=== PATIENT | female | born 1930 | race Caucasian/White ===

== ENCOUNTER 2016-08-13 14:50 | Inpatient (IN) | payer OTHER ==
--- NOTE | ~2016-08-13 | DS ---
Discharge Summary [facility] [id number] [place]. [address] NAME: KELLEE KRISHNA : [birth year] STATUS : DIS IN PAT#: [id number] AGE: 86 ADM/REG DATE : 08/13/16 MR#: [id number] REPORT SERV DATE: 08/19/16 DICTATED BY: MYRA HECK DATE: 08/18/16 REPORT STATUS : Draft TRANSCRIBED BY: MODL DATE: 08/18/16 ADMISSION DATE: 08/13/2016 DISCHARGE DATE: 08/18/2016 REASON FOR ADMISSION: Right toe cellulitis. HISTORY OF PRESENT ILLNESS: Please refer Dr. Shayy Poon's history and physical dated 08/14/2016 for complete details regarding the patient's admission. In brief, the patient was started on IV antibiotics for her right toe cellulitis. HOSPITAL COURSE: The patient had an uncomplicated hospital course. Dr. Poon had consulted Dr. Mallory, who recommended continuing IV vancomycin along with Dr. Guero Britton for her right toe wound. Dr. 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 He also recommended a carbon fiber toe off. Dr. Mallory had switched her from vancomycin to oral Zyvox on the day of discharge. She did have an MRI finding that showed some bone marrow edema and soft tissue edema with a possibility of osteomyelitis of the great toe phalanges. However, her physical exam and other subjective data was not consistent with osteomyelitis. The patient has reached maximal hospitalization, will be discharged home in stable condition. DISCHARGE DIAGNOSES: 1. Right great toe cellulitis with unlikely osteomyelitis. 2. Chronic kidney disease stage 3. 3. Alzheimer's dementia. 4. Peripheral arterial disease. PROCEDURES: Include MRI of the right foot. CONSULTATION: With Dr. Mallory and Dr. Britton. DISCHARGE MEDICATIONS: Include acyclovir 400 mg daily, vitamin B12 daily, vitamin D 1000 units daily, mupirocin daily, Zyvox 600 mg twice a day for seven days. FOLLOWUP: The patient will follow up with Dr. Zuhair Britton. NELY/ERICA Myra Heck MD / [id number] CC: Discharge Summary [address] [place]. [address] NAME: KELLEE KRISHNA : [birth year] STATUS : DIS IN PAT#: [id number] AGE: 86 ADM/REG DATE : 08/13/16 MR#: [id number] REPORT SERV DATE: 08/19/16 DICTATED BY: MYRA HECK DATE: 08/18/16 REPORT STATUS : Draft TRANSCRIBED BY: MODL DATE: 08/18/16 MD Morales Wesley M.D. C. Jason Wamack, D.P.M.
--- NOTE | ~2016-08-13 | CN ---
Consultation Report [facility] [address] [place]. [address] NAME: KELLEE KRISHNA : [birth year] STATUS : ADM Lyubov PAT#: [id number] AGE: 86 ADM/REG DATE : 08/13/16 MR#: [id number] REPORT SERV DATE: 08/18/16 DICTATED BY: LIUDMILA MOLINA DATE: 08/17/16 REPORT STATUS : Draft TRANSCRIBED BY: MODL DATE: 08/17/16 CONSULTATION NOTE. DATE OF CONSULTATION: 08/16/2016 REASON FOR CONSULTATION: Possible osteomyelitis right great toe. HISTORY OF PRESENT ILLNESS: The patient is an 86-year-old female, who is seen at bedside with daughters present. The daughters relate a lengthy history of her stubbing and dragging her right great toe. The patient states she is unable to move her toe up or down. She states that there has been on and off wounds to the toe, but they typically heal. This is assumed to be from dragging of the toe according to the daughters. They relate two to three weeks ago, she had another wound/cut that started on the top of the toe and began to show more swelling and redness. She at that point, went to an Urgent Care Center where Rocephin and doxycycline was given. They stated that it worsened and went to the primary care physician, Dr. Dalton and was subsequently admitted. The patient does have a history of "a slipped disc" in her back; however, her back pain has resolved and the daughters relate that has been years ago. They do relate on and off injuries to the great toe again from stubbing it, but deny any previous surgery on the right foot. PAST MEDICAL HISTORY: Includes chronic renal insufficiency, peripheral vascular disease, dementia, footdrop, pyelonephritis, history of shingles, and osteoarthritis. PAST SURGICAL HISTORY: Left elbow surgery and cystoscopy. FAMILY HISTORY: Hypertension and myocardial infarction. SOCIAL HISTORY: Denies alcohol, tobacco, or drug use. ALLERGIES: DILAUDID. MEDICATIONS: List of medications were reviewed in the chart. REVIEW OF SYSTEMS: No other pertinent findings on review of systems were noted other than history of herniated disc and previous injury to the great toe. Currently denies nausea, vomiting, fever, or chills. Denies calf pain. Denies chest pain. PHYSICAL EXAMINATION: GENERAL: The patient is an elderly white female, seen at bedside. She is alert, in no apparent distress, and somewhat confused with questioning. VITAL SIGNS: Vital signs are stable. Afebrile. CARDIOVASCULAR: Palpable pulses 1/4 with atrophic skin is present. Capillary refill time is somewhat delayed. Regular rate. Consultation Report [facility] [address] [place]. [address] NAME: KELLEE KRISHNA : [birth year] STATUS : ADM Lyubov PAT#: [id number] AGE: 86 ADM/REG DATE : 08/13/16 MR#: [id number] REPORT SERV DATE: 08/18/16 DICTATED BY: LIUDMILA MOLINA DATE: 08/17/16 REPORT STATUS : Draft TRANSCRIBED BY: ERICA DATE: 08/17/16 HEENT: Normocephalic and atraumatic. No visible drainage. LUNGS: Unlabored breathing, symmetrical respiratory effort. ABDOMEN: Nondistended. DERMATOLOGICAL: Skin is atrophic. There is a well-healed lacerations/previous ulceration to the dorsal right IPJ. There is a localized erythema. No proximal streaking. There is minimal edema. No fluctuance. No soft tissue crepitus appreciated. No odor. No drainage. MUSCULOSKELETAL: Muscle strength is 3/5 with dorsiflexion of the right foot, 0/5 with dorsiflexion and plantar flexion of the great toe on the right side. Left side is 4/5 dorsiflexion and 4/5 with dorsiflexion of the great toe on the left side. DIAGNOSTIC DATA: MRI shows bone marrow edema within the portion of the proximal phalanx and distal phalanx. ASSESSMENT: Right foot cellulitis possible osteomyelitis of the right great toe, peripheral vascular disease, right footdrop/toe drop with history of chronic injuries to the right great toe. PLAN: At this time arterial Dopplers will be ordered to evaluate her arterial circulation. Clinically there is minimal erythema and the wound appears to be healed, this is not clinically impressive for osteomyelitis of the great toe. I discussed the possibility of possible bone marrow edema is due to the chronic trauma of the right great toe sustains while walking and the daughters do relate her stubbing her toe constantly. We will discuss with the Infectious Disease, Dr. Mallory, and also will re-evaluate once arterial Dopplers come in. Hopeful plan will be antibiotics, continue to watch resolution, but ultimately having a Carbon-Fiber ToeOFF AFO to be used in order to eliminate the constant trauma to the drop of the right great toe. Also the MRI revealed no mention of an extensor or flexor hallucis tendon rupture. This could be coming from her history of her lumbar spine issues. We will re-evaluate tomorrow. LOGAN/ERICA Travis AdamsPYovani / [id number] CC: MD Morales Wesley M.D.
--- NOTE | ~2016-08-13 | HP ---
History And Physical [facility] [address] [place]. [address] NAME: KELLEE KRISHNA : [birth year] STATUS : ADM Lyubov PAT#: [id number] AGE: 86 ADM/REG DATE : 08/13/16 MR#: [id number] REPORT SERV DATE: 08/14/16 DICTATED BY: HONG ANDERSON DATE: 08/13/16 REPORT STATUS : Draft TRANSCRIBED BY: MODUrvashi DATE: 08/13/16 DATE OF ADMISSION: 08/13/2016 CHIEF COMPLAINT: Right toe swelling and redness status post trauma. HISTORY OF PRESENT ILLNESS: This is an 86-year-old female with a past medical history of peripheral vascular disease, stage 3 CKD, experienced a trauma to her right toe after tripping over her carpet approximately two weeks ago. According to the son, the patient injured her right great toe. She was seen at an Urgent Care Facility and was placed on doxycycline and given an injection which is suspected to be Rocephin; however, the right toe wound continued to get worse with increased redness and increased pain and swelling. Therefore, the patient was seen at her primary care's office, Dr. Dalton, for the first time concerning for right toe, and the patient was directly admitted to the hospital for worsening cellulitis. According to the son, who gives the history, due to the patient's dementia, the patient has not had any fever or chills. She is still ambulatory but uses assistive devices at home. Also, the son states that they washed the wound with peroxide approximately two weeks ago, and the patient was compliant with her doxycycline but continued to have worsening redness and swelling. He also states that her last tetanus was approximately in 2012. The patient at this time denies any pain except with movement of the great toe. No chest pain. No shortness of breath. REVIEW OF SYSTEMS: Limited secondary to the patient's dementia, please refer to the HPI. PAST MEDICAL HISTORY: Peripheral vascular disease, no noted stent placed; CKD stage 3; dementia; right ureter stone with obstruction; pyelonephritis; shingles; and arthritis. PAST SURGICAL HISTORY: Cystoscopy with double-J stent to the right ureter, left elbow surgery, and right great toe injury in 12/2015. FAMILY HISTORY: Hypertension and ME. SOCIAL HISTORY: No tobacco, alcohol, or illicit drugs. ALLERGIES: DILAUDID. HOME MEDICATIONS: Vitamin B12, vitamin D, acyclovir prophylaxis, and doxycycline for toe injury. PHYSICAL EXAMINATION: VITAL SIGNS: Temp of 97.7, blood pressure 154/74 with a pulse of 73, respirations of 16, and saturating 98% on room air. GENERAL: The patient is alert and oriented x1, very pleasant, follows commands. HEENT: Pupils equal, round, and reactive to light. Extraocular muscles are intact. Anicteric sclerae. Dry mucous membranes. CARDIOVASCULAR: S1, S2. Regular rate and rhythm. No appreciated rubs or gallops. No JVD. History And Physical [address] [address] NAME: KELLEE KRISHNA : [birth year] STATUS : ADM Lyubov PAT#: [id number] AGE: 86 ADM/REG DATE : 08/13/16 MR#: [id number] REPORT SERV DATE: 08/14/16 DICTATED BY: HONG ANDERSON DATE: 08/13/16 REPORT STATUS : Draft TRANSCRIBED BY: ERICA DATE: 08/13/16 RESPIRATORY: Clear to auscultation bilaterally. No wheezes or crackles. No signs of tachypnea. ABDOMEN: Positive bowel sounds. Soft, nontender. No rebound. No fluid wave. No distention. EXTREMITIES: Weak dorsalis pedis pulses but warm with an old healing laceration of the right great toe which appears to be very deep but no drainage with some healing with beginning to develop some old scar tissue. Positive induration with positive erythema of the great toe. Tenderness to palpation with movement. Positive warmth. NEUROLOGIC: Cranial nerves 2 through 12 grossly intact. Moves all four extremities. No neuro focal deficits. LABORATORY DATA: Currently pending. ASSESSMENT AND PLAN: 1. Acute right great toe cellulitis with wound. 2. Stage 3 chronic kidney disease. 3. Peripheral vascular disease. 4. We will start IV antibiotics. Also, we will check blood cultures. The patient is already on doxycycline, therefore, blood cultures may be sterile. We will check also basic labs and also will provide tetanus vaccine/booster. The patient will be monitored closely. JARROD/ERICA Hong Anderson M.D. / [id number] CC: Yosef Crockett M.D.
--- NOTE | ~2016-08-13 | CN ---
Consultation Report [facility] [address] [place]. [address] NAME: KELLEE KRISHNA : [birth year] STATUS : ADM Lyubov PAT#: [id number] AGE: 86 ADM/REG DATE : 08/13/16 MR#: [id number] REPORT SERV DATE: 08/16/16 DICTATED BY: DALY LOAIZA DATE: 08/16/16 REPORT STATUS : Draft TRANSCRIBED BY: MODUrvashi DATE: 08/16/16 INFECTIOUS DISEASE CONSULTATION DATE OF CONSULTATION: REASON FOR REFERRAL: Evaluation and treatment of foot infection. HISTORY OF PRESENT ILLNESS: The patient is an 86-year-old female. She has a history of chronic renal insufficiency and dementia. She has had past urinary stones, shingles in the past. She has peripheral vascular disease in her lower extremities. She has loss of movement in flexion and extension of her right great toe and when walking barefoot, will frequently catch it on things and bend it down that has happened a couple of times in the last ten months, resulting in deep cuts on the top of the toe. The first time, it healed and did not trouble her for that, but about two and a half weeks ago, she got another cut that then began to turn red and caused swelling in the toe, so she went to an acute care center. They gave her an intramuscular injection of Rocephin and sent her out on doxycycline, but it continued to swell and worsen with that. She was seen by her primary care physician, Dr. Dalton, last week and then admitted. There was nothing to culture from the toe itself, but blood cultures were done, those have remained negative. She was started on vancomycin, and line around the redness which extended onto the distal half of her first metatarsal has decreased down to the toe itself, base, the redness has faded some on the toe, but it continues to be very painful. The wound looks healed and has not opened up or drained any. An MRI was done yesterday and this suggested possible osteomyelitis. She has been afebrile and does not feel sick with any systemic symptoms. It was an inside carpet that she cut it on, so there have been no unusual environmental exposures. PAST MEDICAL HISTORY: Otherwise, unremarkable. MEDICATIONS: As mentioned above. ALLERGIES: NO KNOWN ANTIMICROBIAL ALLERGIES. SOCIAL HISTORY: She lives at home independently prior to this. She is single and has no history of alcohol or substance abuse. No history of smoking. PHYSICAL EXAMINATION: GENERAL: A nontoxic, elderly female, in no acute distress. She is awake, alert, answers questions nearly appropriately, but gets confused about times and locations easily. VITAL SIGNS: Her temperature here has been normal throughout the hospital stay, most recently was 98.4 with a pulse of 68, respirations 15, blood pressure 117/75, weight 58 kg. HEENT: Sclerae clear. No oral lesions. NECK: Supple. LUNGS: Clear. HEART: Regular rate and rhythm. Consultation Report [facility] [id number] [facility] [place]. [address] NAME: KELLEE KRISHNA : [birth year] STATUS : ADM Lybuov PAT#: [id number] AGE: 86 ADM/REG DATE : 08/13/16 MR#: [id number] REPORT SERV DATE: 08/16/16 DICTATED BY: DALY LOAIZA DATE: 08/16/16 REPORT STATUS : Draft TRANSCRIBED BY: ERICA DATE: 08/16/16 ABDOMEN: Soft and nontender. Positive bowel sounds. EXTREMITIES: The right great toe is mildly swollen, it is erythematous from the base to the end, it is very tender. The cut across the top of the toe is well healed. There is no active drainage. No fluctuance. No other acute appearing lesions on her feet. No skin lesions or rashes. LABORATORY DATA: White count 6.5 when she came in, 4.7 on 08/14; hematocrit 39.3; platelets 176; unremarkable differential and the white blood cell count. BUN and creatinine 26 and 1.48. IMPRESSION: Infected great toe due to trauma. I feel this is most likely gram-positive cocci and she has responded to the vancomycin, but incompletely, and with the findings on the MRI, this could be due to deep infection that has involved the bone. RECOMMENDATIONS: 1. Agree with vancomycin for now. Would not add anything to it. 2. Await evaluation by either Podiatry or Ortho Foot and Ankle of both the patient and the MRI. If possible, she will need amputation or debridement, in which case, better cultures can be obtained. 3. Finally, I will follow the patient with you. I appreciate very much your consulting on this patient. CHERYL Daly Loaiza M.D. / [id number] CC: Yosef Crockett M.D.
[~2016-08-13 14:50] MED LIST: 8 HOUR650 MG PO; ALEVE220 MG PO; ARICEPT5 PO; CENTRUM PO; CIPROFLOXACIN PO; COZ50 PO; DURICEF PO; HYDROCODONE PO; LOP50 PO; LORT7 PO; NORCO1 TA2 PO; OMNICEF300 PO; PR25 PO; TYLENOL ARTH650 MG PO; VICODINTAB PO; VIT B; VITAMIN B PO; VITAMIN B-121000 MC1 SL; VITAMIN D1000 UNI1 PO; VITAMIN D31000 UNIT PO; ZOVI800 PO; ZOVIRAX400 MG PO
[2016-08-13 17:23] LABS: BASOPHILS 0.6 %; BASOPHILS ABSOLUTE 0.04 10/3/uL (0.0-0.16); EOSINOPHILS 3.4 %; EOSINOPHILS ABSOLUTE 0.22 10/3/uL (0.0-0.53); HEMATOCRIT 44.2 % (36.0-48.0); HEMOGLOBIN 14.7 g/dL (12.0-16.0); IMMATURE GRANULOCYTES 0.2 %; IMMATURE GRANULOCYTES ABSOLUTE 0.01 10/3/uL (0.0-0.11); LYMPHOCYTES 20.3 %; LYMPHOCYTES ABSOLUTE 1.33 10/3/uL (0.67-4.30); MEAN CORPUS HGB CONC 33.3 g/dL (32.0-36.0); MEAN CORPUSCULAR HEMOGLOB 29.5 pg (26.0-34.0); MEAN PLATELET VOLUME 10.1 fL (9.2-13.0); MONOCYTES 5.4 %; MONOCYTES ABSOLUTE 0.35 10/3/uL (0.21-1.20); NEUTROPHILS 70.1 %; NEUTROPHILS ABSOLUTE 4.59 10/3/uL (2.02-8.40); PLATELET COUNT 221 10/3/uL (150-400); RBC DISTRIBUTION WIDTH 14.8 % (12.0-16.0); RED CELL COUNT 4.98 10/6/uL (4.0-5.6); WHITE BLOOD CELLS 6.5 10/3/uL (4.5-10.5)
[2016-08-13 17:24] LABS: MANUAL DIFF NO %; MEAN CORPUSCULAR VOLUME 88.8 fL (80-100)
[2016-08-13 17:38] LABS: A/G RATIO 1.1 (0.7-1.9); ALBUMIN 3.8 G/DL (3.5-5.0); ALKALINE PHOSPHATASE 94 U/L (45-117); BUN (BLOOD UREA NITROGEN) 28 MG/DL (6-23); CALCIUM, SERUM 10.3 MG/DL (8.5-10.4); CHLORIDE, SERUM 110 MMOL/L (96-112); CO2 (CARBON DIOXIDE) 23 MMOL/L (24-34); CREATININE 1.56 MG/DL (0.55-1.02); GFR AFRICAN AMERICAN 34 ML/MIN (>=60); GFR NON AFRICAN AMERICAN 29 ML/MIN (>=60); GLOBULIN 3.5 G/DL (2.5-4.1); GLUCOSE, SERUM 89 MG/DL (60-99); SGOT(AST) 17 U/L (5-40); SGPT(ALT) 21 U/L (5-65); SODIUM, SERUM 145 MMOL/L (135-148); TOTAL BILIRUBIN 0.5 MG/DL (0-1.2); TOTAL PROTEIN 7.3 G/DL (6.0-8.5)
[2016-08-13] MEDS ORDERED: ZOVIRAX400 MG PO (21:43)
[2016-08-13] MEDS ORDERED: BACTROINT TOP (21:44)
[2016-08-13] MEDS ORDERED: VIBRATAB100 MG PO (21:44)
[2016-08-13] MEDS ORDERED: VITAMIN D1000 UNI1 PO (21:45)
[2016-08-13] MEDS ORDERED: CYANO1000T PO (21:45)
[2016-08-14 06:10] LABS: BASOPHILS 1.1 %; BASOPHILS ABSOLUTE 0.05 10/3/uL (0.0-0.16); EOSINOPHILS 5.2 %; EOSINOPHILS ABSOLUTE 0.24 10/3/uL (0.0-0.53); HEMOGLOBIN 12.9 g/dL (12.0-16.0); IMMATURE GRANULOCYTES 0.2 %; IMMATURE GRANULOCYTES ABSOLUTE 0.01 10/3/uL (0.0-0.11); LYMPHOCYTES 31.1 %; LYMPHOCYTES ABSOLUTE 1.45 10/3/uL (0.67-4.30); MEAN CORPUS HGB CONC 32.8 g/dL (32.0-36.0); MEAN CORPUSCULAR HEMOGLOB 28.9 pg (26.0-34.0); MEAN CORPUSCULAR VOLUME 88.1 fL (80-100); MEAN PLATELET VOLUME 9.6 fL (9.2-13.0); MONOCYTES 5.8 %; MONOCYTES ABSOLUTE 0.27 10/3/uL (0.21-1.20); NEUTROPHILS 56.6 %; NEUTROPHILS ABSOLUTE 2.64 10/3/uL (2.02-8.40); PLATELET COUNT 176 10/3/uL (150-400); RBC DISTRIBUTION WIDTH 14.7 % (12.0-16.0); RED CELL COUNT 4.46 10/6/uL (4.0-5.6); WHITE BLOOD CELLS 4.7 10/3/uL (4.5-10.5)
[2016-08-14 06:14] LABS: HEMATOCRIT 39.3 % (36.0-48.0); MANUAL DIFF NO %
[2016-08-15 06:55] LABS: BUN (BLOOD UREA NITROGEN) 26 MG/DL (6-23); CALCIUM, SERUM 9.5 MG/DL (8.5-10.4); CHLORIDE, SERUM 113 MMOL/L (96-112); CO2 (CARBON DIOXIDE) 22 MMOL/L (24-34); CREATININE 1.48 MG/DL (0.55-1.02); GFR AFRICAN AMERICAN 36 ML/MIN (>=60); GFR NON AFRICAN AMERICAN 31 ML/MIN (>=60); GLUCOSE, SERUM 93 MG/DL (60-99); POTASSIUM, SERUM 3.6 MMOL/L (3.5-5.3); SODIUM, SERUM 146 MMOL/L (135-148)
[2016-08-17 07:11] LABS: BUN (BLOOD UREA NITROGEN) 31 MG/DL (6-23); CALCIUM, SERUM 9.4 MG/DL (8.5-10.4); CHLORIDE, SERUM 114 MMOL/L (96-112); CO2 (CARBON DIOXIDE) 23 MMOL/L (24-34); CREATININE 1.55 MG/DL (0.55-1.02); GFR AFRICAN AMERICAN 34 ML/MIN (>=60); GFR NON AFRICAN AMERICAN 30 ML/MIN (>=60); GLUCOSE, SERUM 93 MG/DL (60-99); POTASSIUM, SERUM 4.2 MMOL/L (3.5-5.3); SODIUM, SERUM 145 MMOL/L (135-148)
[2016-08-18] MEDS ORDERED: ZYVOXPO PO (11:58)
== END 2016-08-18 12:52 | disposition home or self-care (01) | DRG 603 ==
LOC: 5SO 14:50
PROVIDERS: Internal Medicine
DX: L03.031 Cellulitis of right toe (principal); N18.3 Chronic kidney disease, stage 3 (moderate); I73.9 Peripheral vascular disease, unspecified; G30.9 Alzheimer's disease, unspecified; F02.80 Dementia in other diseases classified elsewhere, unspecified severity, without behavioral disturbance, psychotic disturbance, mood disturbance, and anxiety
CPT/HCPCS: 73718-RT; 80048; 80053; 80202; 85025; 87040; 90714; 93005; 93923; A9270-GY; J2405; J3370